=== PATIENT | female | born 1985 | race Caucasian/White ===

== ENCOUNTER → 2019-05-07 12:22 | Outpatient (BNVA) | payer BC, OTHER, SELFPAY | PROVIDERS: Family Provider Registered Nurse; PCP Registered Nurse; Visit Provider Nurse Practitioner Women's Health | DX: Z01.419 Encounter for gynecological examination (general) (routine) without abnormal findings (principal) | CPT/HCPCS: 88175 ==

== ENCOUNTER → 2021-06-14 11:32 | Outpatient (BNVA) | payer BC, OTHER, SELFPAY | PROVIDERS: Family Provider Registered Nurse; PCP Registered Nurse; Visit Provider Registered Nurse | DX: L98.9 Disorder of the skin and subcutaneous tissue, unspecified (principal) | CPT/HCPCS: 88305 ==

== ENCOUNTER → 2022-05-24 10:44 | Outpatient (BNVA) | payer OTHER, SELFPAY | PROVIDERS: Family Provider Registered Nurse; PCP Registered Nurse; Visit Provider Nurse Practitioner Women's Health | DX: Z01.419 Encounter for gynecological examination (general) (routine) without abnormal findings (principal) | CPT/HCPCS: 87624 ==

== ENCOUNTER → 2024-12-29 07:32 | Outpatient (BNVA) | payer OTHER, SELFPAY | PROVIDERS: Family Provider Registered Nurse; PCP Registered Nurse; Visit Provider Registered Nurse | DX: M25.50 Pain in unspecified joint (principal); J06.9 Acute upper respiratory infection, unspecified; R53.83 Other fatigue | CPT/HCPCS: 84443; 85025; 86140; 87880 ==

== ENCOUNTER → 2025-01-07 07:42 | Outpatient (BNVA) | payer OTHER, SELFPAY | PROVIDERS: Family Provider Registered Nurse; PCP Registered Nurse; Visit Provider Registered Nurse | DX: R79.82 Elevated C-reactive protein (CRP) (principal) | CPT/HCPCS: 85651; 86038; 86140 ==

== ENCOUNTER 2025-01-28 11:31 | Outpatient (CLI) | payer OTHER, SELFPAY ==
--- NOTE | 2025-01-28 12:00 | USCV_ITS ---
Nathan Kandis Age: 39 Gender: F : 1985 Exam Date: 01/28/2025 12:16 Ordering Phys: Suman Aguiar [employer]ST[employer] Technologist: CHIVO Exam Location: [facility] [place] Indication: cardiac murmur, unspecified BP: 115 / 60 HR: 68 Rhythm: Sinus Technical Quality: Adequate MEASUREMENTS (Male / Female) Normal Values 2D ECHO LV Diastolic Diameter PLAX 4.5 cm 4.2 - 5.9 / 3.9 - 5.3 cm IVS Diastolic Thickness 0.8 cm 0.6 - 1.0 / 0.6 - 0.9 cm IVS Systolic Thickness 1.0 cm LVPW Diastolic Thickness 0.7 cm 0.6 - 1.0 / 0.6 - 0.9 cm LVPW Systolic Thickness 1.3 cm LVOT Diameter 2.0 cm LV Ejection Fraction 2D Teich 64.6 % LV Ejection Fraction MOD 4C 72.1 % LV Ejection Fraction MOD 2C 62.2 % LV Ejection Fraction 2C AL 62.1 % LA Diameter 3.5 cm RA Systolic Volume 4C AL 21.5 ml RA Systolic Volume 4C MOD 20.9 ml LA Sys Volume AL 31.2 cm cubed LA Sys Volume Index AL 17.4 cm cubed/m squared Aorta at Sinotubular Diameter 2.3 cm IVC Diameter 1.8 cm M-MODE LA Ao Ratio MM 1.5 AV Cusp Separation MM 1.7 cm DOPPLER AV Peak Velocity 141.0 cm/s LVOT Peak Velocity 93.0 cm/s AV Area Cont Eq vti 2.4 cm squared AV Area Cont Eq pk 2.1 cm squared MV Peak Velocity 86.0 cm/s MV Area PHT 4.5 cm squared Mitral E to A Ratio 1.2 PV Peak Velocity 100.7 cm/s RV Ejection Time 0.3 s FINDINGS Left Ventricle Normal left ventricular size, systolic function and wall thickness with no regional wall motion abnormality. Left ventricular ejection fraction is 62%. Normal left ventricular diastolic function. Right Ventricle Normal right ventricular size and systolic function. Normal right ventricular systolic pressure. Right Atrium Normal right atrial size. Left Atrium Normal left atrial size. IA Septum Normal appearance of the interatrial septum. Mitral Valve Normal mitral valve structure. No mitral valve stenosis or regurgitation. Aortic Valve Normal aortic valve structure. No aortic valve stenosis. Trace regurgitation. Tricuspid Valve Normal tricuspid valve structure. Trace regurgitation. Pulmonic Valve Normal pulmonic valve structure. No pulmonic valve stenosis. MIld regurgitation. Pericardium No pericardial effusion. Aorta Normal diameter of the aortic root and ascending thoracic aorta. IVC Normal IVC diameter. CONCLUSIONS Normal left ventricular size, systolic function and wall thickness with ejection fraction of 62%. Normal right ventricular size and systolic function. No significant valvular abnormalities. Rajeev Smith MD, FACC (Electronically Signed) Final Date: 28 January 2025 14:27 S
== END 2025-01-28 11:32 | disposition home or self-care (01) ==
LOC: RAD 11:31
PROVIDERS: Family Provider Registered Nurse; PCP Registered Nurse; Visit Provider Registered Nurse
DX: R01.1 Cardiac murmur, unspecified (principal); R68.89 Other general symptoms and signs; Z86.79 Personal history of other diseases of the circulatory system; R93.89 Abnormal findings on diagnostic imaging of other specified body structures
CPT/HCPCS: 93306